=== PATIENT | female | born 1955 | race Caucasian/White ===

== ENCOUNTER → 2016-05-26 | Outpatient (CLI) | payer OTHER | LOC: GMAL 15:13 | PROVIDERS: ATTEND Family Medicine | DX: Z01.818 Encounter for other preprocedural examination (principal) ==

== ENCOUNTER → 2016-06-03 | Outpatient (CLI) | payer OTHER | LOC: GMAL 10:28 | PROVIDERS: ATTEND Family Medicine | DX: N39.0 Urinary tract infection, site not specified (principal) ==

== ENCOUNTER → 2017-03-23 | Outpatient (CLI) | payer OTHER | END | disposition home or self-care (01) | LOC: GMAL 10:33 | PROVIDERS: ATTEND Family Medicine | DX: E55.9 Vitamin D deficiency, unspecified (principal) ==

== ENCOUNTER → 2018-01-28 | Outpatient (CLI) | payer OTHER | LOC: GMAL 12:37 | PROVIDERS: ATTEND Family Medicine | DX: N39.0 Urinary tract infection, site not specified (principal) ==

== ENCOUNTER → 2018-02-16 | Outpatient (CLI) | payer OTHER | LOC: GMAL 12:09 | PROVIDERS: ATTEND Family Medicine | DX: D51.3 Other dietary vitamin B12 deficiency anemia (principal); N39.0 Urinary tract infection, site not specified; R53.83 Other fatigue; E55.9 Vitamin D deficiency, unspecified ==

== ENCOUNTER → 2018-02-25 | Outpatient (CLI) | payer OTHER | LOC: GMAL 10:57 | PROVIDERS: ATTEND Family Medicine | DX: N39.0 Urinary tract infection, site not specified (principal) ==

== ENCOUNTER → 2018-03-04 | Outpatient (CLI) | payer OTHER | LOC: GMAL 10:26 | PROVIDERS: ATTEND Family Medicine | DX: M25.511 Pain in right shoulder (principal) ==

== ENCOUNTER → 2018-03-17 | Outpatient (CLI) | payer OTHER ==
--- NOTE | 2018-03-17 11:29 | CT ---
EXAM DESCRIPTION: Abdomen/Pelvis w/wo Contrast CLINICAL HISTORY: 62 years Female, KIDNEY STONES COMPARISON: None available. TECHNIQUE: Contiguous 3 mm axial images were obtained from the lung bases to the level of the proximal femora before and after the administration of intravenous and oral contrast. Sagittal and coronal reconstructions were reviewed. FINDINGS: THORAX: Pectus excavatum is noted. Mild atelectasis is noted in the bilateral lung bases. LIVER: The liver demonstrates normal size and density with no intrahepatic biliary ductal dilatation or focal masses. GALLBLADDER: Surgically absent. PANCREAS: Appears normal with no cystic or solid lesions. SPLEEN: Normal ADRENAL GLANDS: Normal with no nodules or masses. KIDNEYS: Multiple simple cysts are identified bilaterally. In addition to small to characterize hypodense lesions are also noted which remains indeterminate in etiology. No evidence of renal calculi or hydronephrosis. No focal masses are identified. The visualized ureters appear grossly unremarkable. STOMACH: The stomach is not well-distended limiting detailed evaluation. SMALL BOWEL: The small bowel loops demonstrate variable degrees of distention with no abnormal dilatation or other signs to suggest bowel obstruction. LARGE BOWEL: Mild constipation is noted. Few scattered colonic diverticuli are identified. The appendix is not definitely seen. No evidence of free intraperitoneal air or fluid. RETROPERITONEUM: The abdominal aorta is nonaneurysmal with minimal atherosclerosis. The inferior vena cava is normal in size and caliber. No abnormally enlarged retroperitoneal lymph nodes are identified. URINARY BLADDER:The urinary bladder is well-distended with no gross abnormality. The uterus and ovaries are surgically absent. ADDITIONAL FINDINGS: 2 cm fat-containing medical hernia is noted. BONES: Mild degenerative changes are identified in the visualized bones.No evidence of osteophytic or osteoblastic lesions. IMPRESSION: 1. No evidence of bilateral renal calculi. 2. Multiple bilateral simple renal cysts are noted. In addition multiple too small to characterize hypodense lesions are also noted in both kidneys remain indeterminate in etiology. This exam was performed according to our departmental dose-optimization program, which includes automated exposure control, adjustment of the mA and/or kV according to patient size and/or use of iterative reconstruction technique. Electronically signed by: Elvia Allison MD 03/17/2018 11:28 AM [facility]
== END ==
LOC: CT 08:14
PROVIDERS: ATTEND Family Medicine
DX: N20.1 Calculus of ureter (principal); N28.1 Cyst of kidney, acquired

== ENCOUNTER 2019-05-14 11:16 | Emergency (ER) | payer MEDICARE ==
--- NOTE | 2019-05-14 12:49 | RAD ---
EXAM: XR Chest, 2 Views CLINICAL HISTORY: cough, chest tightness TECHNIQUE: Frontal and lateral views of the chest. COMPARISON: 08/26/2014 FINDINGS: Lungs: Hyperinflation noted. Small focus of consolidation identified in the lingula. Pleural space: Unremarkable. No pneumothorax. Heart: Stable cardiac enlargement. Mediastinum: Unremarkable. Bones/joints: Unremarkable. IMPRESSION: COPD with left basilar atelectasis or pneumonia. Follow-up until resolution needed. Electronically signed by: Carlene Monroe MD 05/14/2019 12:47 PM [facility]
[2019-05-14] MEDS ORDERED: levoFLOXacin 500 MG TAB PO ONE (13:24)
[2019-05-14] MEDS ORDERED: methylPREDNISolone SODIUM SUC 125 MG/2 ML VIAL IM ONE (13:24)
--- NOTE | 2019-05-14 13:27 | ED.PDOC ---
History of Present Illness - General Chief Complaint: Respiratory Problem Time Seen by Provider: 05/14/19 12:38 - History of Present Illness Initial Comments: c/o having cough , fatigue , chest tightness and sob since 1 week , went to the PCP was given zithromax with no improvement , 2 days back went to urgent care where she was told that she has flu and was sent home. Timing/Duration: 1 week Severity: moderate Activities at Onset: none Possible Cause: no prior episodes Improving Factors: nothing Worsening Factors: nothing Associated Symptoms: cough Allergies/Adverse Reactions: Allergies Sulfamethoxazole w/Trimethoprim [From Bactrim] Allergy (Intermediate, Verified 08/27/14 10:52) Hives "Whelps" on legs Home Medications: Ambulatory Orders Lisinopril 5 mg PO DAILY 08/25/14 Albuterol Inhaler [Ventolin Hfa Inhaler] 2 puff INH QID 10 Days inh 05/14/19 Eletriptan Hydrobromide 40 mg PO DAILY PRN 05/14/19 Levofloxacin [Levaquin] 750 mg PO DAILY #4 tablet 05/14/19 Prednisone 50 mg PO QDAC #4 tab 05/14/19 Review of Systems - Review of Systems Constitutional: States: see HPI, weakness EENTM: States: no symptoms reported, see HPI Respiratory: States: see HPI Cardiology: States: no symptoms reported Gastrointestinal/Abdominal: States: no symptoms reported Genitourinary: States: no symptoms reported Musculoskeletal: States: no symptoms reported Skin: States: no symptoms reported Neurological: States: no symptoms reported Endocrine: States: no symptoms reported Past Medical History (General) - Patient Medical History Hx Seizures: No Hx Stroke: No Hx Dementia: No Hx Asthma: No Hx of COPD: No Hx Cardiac Disorders: No Hx Congestive Heart Failure: No Hx Pacemaker: No Hx Hypertension: Yes Hx Thyroid Disease: No Hx Diabetes: No Hx Gastroesophageal Reflux: No Hx Renal Disease: No Hx Cancer: No Hx of HIV: No Hx Hepatitis C: No Hx MRSA: No MRSA Source:: Wound - Vaccination History Hx Influenza Vaccination: No Hx Pneumococcal Vaccination: Yes - approx 6-7 yrs ago - Social History Hx Tobacco Use: Yes - Quit 1984 Hx Alcohol Use: No Hx Substance Use: No Hx Substance Use Treatment: No Hx Depression: No - Female History Hx Last Menstrual Period: 08/27/14 Patient : No Family Medical History - Family History Mother Family History: No Known Physical Exam - Physical Exam General Appearance: Alert, Well Developed, Well Groomed, Well Hydrated, Well Nourished Eyes, Ears, Nose, Throat Exam: PERRL/EOMI, normal ENT inspection Neck: non-tender, full range of motion, supple, normal inspection Respiratory: lungs clear, normal breath sounds, no respiratory distress Cardiovascular/Chest: regular rate, rhythm, no edema, no gallop Gastrointestinal/Abdominal: non tender, soft Extremity: normal range of motion, non-tender, normal inspection Neurologic: no motor/sensory deficits, alert, normal mood/affect, oriented x 3 Skin Exam: normal color, warm/dry Lymphatic: no adenopathy Departure - Departure Clinical Impression: Pneumonia, COPD (chronic obstructive pulmonary disease) Time of Disposition: 13:32 Disposition: Discharge to Home or Self Care Departure Forms: ED Discharge - Pt. Copy, Patient Portal Self Enrollment Diet: resume usual diet Activity: increase activity as tolerated Referrals: Ajith Anderson III, MD [Primary Care Provider] - 1-2 Weeks Prescriptions: Albuterol Inhaler [Ventolin Hfa Inhaler] 2 puff INH QID 10 Days inh Levofloxacin [Levaquin] 750 mg PO DAILY #4 tablet Prednisone 50 mg PO QDAC #4 tab Home Medications: Ambulatory Orders Lisinopril 5 mg PO DAILY 08/25/14 Albuterol Inhaler [Ventolin Hfa Inhaler] 2 puff INH QID 10 Days inh 05/14/19 Eletriptan Hydrobromide 40 mg PO DAILY PRN 05/14/19 Levofloxacin [Levaquin] 750 mg PO DAILY #4 tablet 05/14/19 Prednisone 50 mg PO QDAC #4 tab 05/14/19 Additional Instructions: Follow up PCP in 1-2 days
[2019-05-14 14:10] VITALS: BP 118/84; TEMP 97; O2SAT 92
== END 2019-05-14 13:55 | disposition home or self-care (01) ==
LOC: ER 11:16
DX: J18.9 Pneumonia, unspecified organism (principal); J44.9 Chronic obstructive pulmonary disease, unspecified; I10 Essential (primary) hypertension; Z87.891 Personal history of nicotine dependence; Z79.899 Other long term (current) drug therapy; Z88.2 Allergy status to sulfonamides
CPT/HCPCS: 71046; J2930

== ENCOUNTER → 2019-10-06 | Outpatient (CLI) | payer MEDICARE ==
--- NOTE | 2019-10-06 15:16 | RAD ---
EXAM DESCRIPTION: Foot,Left 3 Views: CR/DR/XR CLINICAL HISTORY: 63 years Female PAIN IN LEFT FOOT COMPARISON: None. TECHNIQUE: 3 VIEWS AP. Lateral. Oblique. Left foot. FINDINGS: Prior screw osteotomy distal left fifth metatarsal and distal left first metatarsal. All arthrosis great metatarsophalangeal joint. Partial fusion of the great IP joint. Minimal narrowing of the IP joints of the irregularity of the distal aspect of the proximal phalanx of the left fifth toe suggesting a fracture which also involves the IP joint. No displaced bone fragments. Narrowing of the fifth tarsometatarsal joint. Tiny plantar spur on the calcaneus and posterior calcaneal Achilles tendon enthesophyte.. IMPRESSION: Minimally displaced fracture of the distal aspect of the occipital phalanx of the left fifth toe also involving the IP joint. Prior osteotomies. Arthrosis at other joints as previously described. Electronically signed by: Tino Munoz MD 10/06/2019 3:15 PM CDT
== END ==
LOC: RAD 09:29
PROVIDERS: ATTEND Registered Nurse General Practice
DX: S92.532A Displaced fracture of distal phalanx of left lesser toe(s), initial encounter for closed fracture (principal); M19.072 Primary osteoarthritis, left ankle and foot; Z98.890 Other specified postprocedural states; Z89.629 Acquired absence of unspecified hip joint

== ENCOUNTER → 2019-10-17 | Outpatient (CLI) | payer MEDICARE | LOC: YCFC.O 13:20 | PROVIDERS: ATTEND Family Medicine | DX: M79.672 Pain in left foot (principal) ==

== ENCOUNTER → 2019-10-19 | Outpatient (CLI) | payer MEDICARE ==
--- NOTE | 2019-10-19 12:47 | MRI ---
Study: MRI of the Left Foot. Indication: PAIN LEFT FOOT Technique: Multiplanar, multi sequence MRI of the left foot was obtained without intravenous contrast. Comparison: Radiographs October 06, 2019. Findings: Extensive subcutaneous edema throughout the foot and ankle without drainable fluid collection. Susceptibility artifact related to surgical screws within the distal shafts of the first and fifth metatarsals. No acute fracture plane identified. Low-grade Achilles tendinosis. Mild tenosynovitis medial tendons and peroneal tendons. Subtle tendinosis peroneus brevis tendon with longitudinal fissuring inferior to the lateral malleolus. Anterior tendons intact. Increased PD signal anterior and posterior tibiofibular ligaments indicating sprains. No rupture of the medial or lateral ankle ligaments. Lisfranc ligament intact. Ankle mortise alignment normal. Talar dome intact. Mild patchy marrow edema inferior margin lateral malleolus which may be contusive in etiology. No fracture. Mild posterior subtalar joint osteoarthritis. Scattered osteoarthritis of the midfoot and most pronounced at the talonavicular joint as well as the third TMT joint where there are mild to moderate changes. Moderate plantar calcaneal heel spurring without rupture of the plantar fascia. At least moderate to severe osteoarthritis first MTP joint noted. Fusion of the first IP joint. Impression: Subcutaneous edema throughout the left foot and ankle. Osseous contusion at the inferior margin lateral malleolus without fracture. Sprains of the anterior and posterior tibiofibular ligaments. Scattered osteoarthritic changes of the midfoot as above. Subtle tendinosis of the peroneus brevis tendon without tear. Additional findings as detailed above. Electronically signed by: Patel Norton MD 10/19/2019 12:46 PM CDT
== END ==
LOC: MRI 07:00
PROVIDERS: ATTEND Family Medicine
DX: M19.072 Primary osteoarthritis, left ankle and foot (principal); S93.432A Sprain of tibiofibular ligament of left ankle, initial encounter; S90.02XA Contusion of left ankle, initial encounter; M77.52 Other enthesopathy of left foot and ankle; M77.32 Calcaneal spur, left foot; R60.0 Localized edema

== ENCOUNTER → 2020-03-29 | Outpatient (CLI) | payer MEDICARE | LOC: YCFC.O 10:14 | PROVIDERS: ATTEND Nurse Practitioner Family | DX: Z20.828 Contact with and (suspected) exposure to other viral communicable diseases (principal) ==

== ENCOUNTER 2020-04-08 13:12 | Outpatient (CLI) | payer MEDICARE ==
--- NOTE | 2020-04-08 11:00 | RAD ---
EXAM DESCRIPTION: Chest,2 Views CLINICAL HISTORY: cough COMPARISON: Previous study May 14, 2019 TECHNIQUE: PA/lateral FINDINGS: The heart is enlarged with normal pulmonary vascularity. Reverse right shoulder arthroplasty with surgical clips in the right axilla. No pleural effusion or pneumothorax. Lungs are clear with no consolidating infiltrate. Lateral view shows pectus excavatum of the sternum and osteopenic T-spine. IMPRESSION: Large heart without congestive failure. Electronically signed by: Stephen Dudley MD 04/08/2020 10:58 AM [facility]
[2020-04-08] MEDS ORDERED: SODIUM CHLORIDE 0.9% 1000ML 1,000 ML ONE (14:10)
== END 2020-04-08 15:35 | disposition home or self-care (01) ==
LOC: INFRM 13:12
PROVIDERS: ATTEND Nurse Practitioner Family
DX: U07.1 COVID-19 (principal); R05 Cough; I51.7 Cardiomegaly
CPT/HCPCS: 36415; 71046; 80053; 85025; 96360; J7030

== ENCOUNTER → 2020-07-02 | Outpatient (CLI) | payer MEDICARE | LOC: YCFC.O 14:24 | PROVIDERS: ATTEND Family Medicine | DX: Z01.818 Encounter for other preprocedural examination (principal) ==